=== PATIENT | female | born 1945 | race Caucasian/White ===

== ENCOUNTER → 2016-08-24 | Outpatient (CLI) | payer OTHER, BC ==
[~2016-08-24] MED LIST: GADOBUTROL 10 ML VIAL IVP ONE
[2016-08-24 11:09] LABS: CREATININE 0.7 mg/dL (0.6-1.0); GLOMERULAR FILTRATION RATE > 60
--- NOTE | 2016-08-24 13:56 | MR ---
MRI of the Brain (Without and with contrast) History: Melanoma, evaluate for intracranial metastatic disease. Technique: T1-weighted images were acquired axially and sagittally from the foramen magnum to the ve rtex. Axial fast inversion recovery, fast T2-weighted, GRE and diffusion-weighted axial images were obtained without contrast. 7.5 mL of gadolinium Gadavist was injected intravenously without complicat ion. Sagittal, axial and coronal imaging is performed. Findings: The ventricles, cisterns, and sulci are normal with age-appropriate mild cerebral atrophy. There are a few scattered white matter foci of nonenhancing, nonbright on diffusion, nonhemorrhagic, T2-weighted hyperintensity, that are consistent with microvascular ischemic changes, of in nature of ten seen in elderly patients. Their bland nature indicates that these do not represent metastatic dis ease. There is a similar small, bland T2 hyperintense linear area associated with a left mid parietal superficial sulcus (image 17, series 7) associated with an adjacent anterior, subtle cortical linear T2 hyperintensity, that may represent a small thrombosed vessel and the sequela of a small nonacute cortical infarction. There is no hydrocephalus, midline shift, herniation, or epidural/subdural hematomas. No intracranial hemorrhage or primary mass. Diffusion-weighted sequence demonstrates no acute infarct. Cerebellar to nsils are in normal position. Pituitary gland is normal in size. Normal signal flow-void in the super ior sagittal sinus, basilar artery, and bilateral internal carotid arteries indicating patency. Paran kim sinuses and mastoid air cells are clear. Impression: 1. No evidence for metastatic melanoma. 2. Consider short-term follow-up brain MRI, in perhaps 3-6 months, to reevaluate the left mid parieta l region.
== END ==
LOC: FIMAGING 09:53
DX: C43.9 Malignant melanoma of skin, unspecified (principal)
CPT/HCPCS: 70553; A9585

== ENCOUNTER → 2016-11-20 | Outpatient (CLI) | payer OTHER | LOC: FIMAGING 09:52 | PROVIDERS: ATTEND Internal Medicine | DX: Z13.820 Encounter for screening for osteoporosis (principal); M85.80 Other specified disorders of bone density and structure, unspecified site ==

== ENCOUNTER → 2016-11-26 | Outpatient (CLI) | payer OTHER | LOC: BHFA 10:15 | PROVIDERS: ATTEND Internal Medicine Cardiovascular Disease | DX: I10 Essential (primary) hypertension (principal) ==

== ENCOUNTER → 2017-04-09 | Outpatient (CLI) | payer OTHER | LOC: FIMAGING 09:38 | DX: C43.9 Malignant melanoma of skin, unspecified (principal) ==

== ENCOUNTER 2017-05-13 13:57 | Emergency (ER) | payer OTHER ==
[2017-05-13 14:07] VITALS: RESP 16; TEMP 97.9
--- NOTE | 2017-05-13 14:16 | EDPHY ---
H & P Stated Complaint: HTN, MARTIN, S/P L KNEE SX YEST Time Seen by Provider: 05/13/17 14:16 HPI/ROS: CHIEF COMPLAINT: Labile blood pressure, mild headache following knee arthroscopy yesterday HISTORY OF PRESENT ILLNESS: The patient presents to the ED with a reported history of a labile blood pressure and heart rate into the 90s based upon home blood pressure monitoring equipment today. The patient had been taking Sweetwater for the 1st time with this surgery. She also uses lorazepam as needed. The patient's blood pressure was reportedly in the 150-160 systolic range. She denies any acute chest pain or shortness of breath. She did have some difficulty sleeping last night secondary to pain. She has been using ibuprofen as well. In the emergency department, she denies any acute numbness or weakness. The patient denies any abdominal pain, nausea or vomiting. The patient has no prior history of PE or DVT. REVIEW OF SYSTEMS: A comprehensive 10 point review of systems is otherwise negative aside from elements mentioned in the history of present illness. Source: Patient Exam Limitations: No limitations - Personal History Current Tetanus Diphtheria and Acellular Pertussis (TDAP): Yes Tetanus Vaccine Date: 2013 - Medical/Surgical History Hx Asthma: No Hx Chronic Respiratory Disease: No Hx Diabetes: No Hx Cardiac Disease: No Hx Renal Disease: No Hx Cirrhosis: No Hx Alcoholism: No Hx HIV/AIDS: No Hx Splenectomy or Spleen Trauma: No Other PMH: L KNEE SX, HTN, MELANOMA, R AND L FOOT SX 8 YRS PRIOR - Social History Smoking Status: Never smoked - Physical Exam Exam: General Appearance: Alert, no distress Eyes: Pupils equal and round no pallor or injection ENT, Mouth: Mucous membranes moist Respiratory: There are no retractions, lungs are clear to auscultation Cardiovascular: Regular rate and rhythm Gastrointestinal: Abdomen is soft and nontender, no masses, bowel sounds normal Neurological: A&O, normal motor function, normal sensory exam, normal cranial nerves Skin: Surgical incision is clean dry and intact Musculoskeletal: Neck is supple nontender Extremities: symmetrical, full range of motion Constitutional: Initial Vital Signs Temperature (C) 36.6 C 05/13/17 14:03 Heart Rate 77 05/13/17 14:03 Respiratory Rate 16 05/13/17 14:03 Blood Pressure 120/76 05/13/17 14:03 O2 Sat (%) 91 L 05/13/17 14:03 O2 Delivery Mode Room Air Allergies/Adverse Reactions: levofloxacin [From Levaquin] Allergy (Mild, Verified 07/11/15 11:25) NAUSEA Sulfa (Sulfonamide Antibiotics) Allergy (Mild, Verified 07/11/15 11:25) Rash Home Medications: Medication Instructions Recorded Ambien 05/13/17 Atenolol 05/13/17 LORAZEPAM 05/13/17 Miralax 17 gm (*) 05/13/17 Medical Decision Making ED Course/Re-evaluation: The patient presents the ED with a concern secondary to a mildly elevated blood pressure home. BP is 120/70 x2 in the ED. She is neurologically intact. The patient did have a mild headache which I suspect is secondary to narcotic medications and poor sleep last night. At this point time I do not feel that any neuro imaging is indicated. Postoperatively the patient appears to be recovering appropriately. She did have some mild flushing earlier today which certainly could have been secondary to her narcotic medications. At this point time I do feel she can be discharged home. She has been advised to limit her Sweetwater intake if possible and stick with ibuprofen as needed for pain. She has a follow-up appointment with her orthopedic surgeon Dr. Chavez next week. She is discharged home with customary aftercare instructions and return precautions. Departure - Departure Disposition: Home, Routine, Self-Care Clinical Impression: Medication side effect Condition: Good Instructions: Hypertension (ED) Additional Instructions: 1. Return to the ED for any vomiting, fever, acute pain, numbness, weakness or other concerns. 2. Please try and limit your Sweetwater use while using lorazepam. Take Ibuprofen or Motrin 600 mg by mouth three times a day. 3. Please follow up as scheduled with your orthopedic surgeon and primary care provider. 4. Your blood pressure in the emergency department is normal at 120/70. Referrals: Migel Wang MD [Primary Care Provider] - As per Instructions
[2017-05-13 15:36] VITALS: BP 131/74; PULSE 65; O2SAT 95
== END 2017-05-13 15:36 | disposition home or self-care (01) ==
DX: I10 Essential (primary) hypertension (principal); T40.2X5A Adverse effect of other opioids, initial encounter; Z85.820 Personal history of malignant melanoma of skin

== ENCOUNTER → 2018-05-06 | Outpatient (CLI) | payer OTHER | LOC: FIMAGING 08:31 | PROVIDERS: ATTEND Internal Medicine Hematology & Oncology | DX: Z12.31 Encounter for screening mammogram for malignant neoplasm of breast (principal); Z13.89 Encounter for screening for other disorder; Z85.820 Personal history of malignant melanoma of skin ==

== ENCOUNTER → 2018-11-04 | Outpatient (CLI) | payer OTHER | LOC: FIMAGING 14:26 | PROVIDERS: ATTEND Internal Medicine Hematology & Oncology | DX: C43.59 Malignant melanoma of other part of trunk (principal); Z15.09 Genetic susceptibility to other malignant neoplasm; R93.89 Abnormal findings on diagnostic imaging of other specified body structures ==